=== PATIENT | female | born 1950 | race Caucasian/White ===

== ENCOUNTER → 2017-10-03 07:40 | Outpatient (CLI) | payer MEDICARE, OTHER ==
[2015-10-16 06:17] VITALS: BMI 39.5
[~2017-10-03 07:40] MED LIST: BIMATOPROST2.5 ML EACH EYE; BIOTIN5 MG PO; FOLIC ACID1 MG PO; FORTEO PEN20 MCG SQ; HYDROCODONE-APA1 TAB PO; LUMIGAN EACH EYE; LUNESTA3 MG PO; LUTEIN20 MG PO; NEXIUM40 MG PO; OCUVITE TABLET1 TA1 PO; PAZEO2.5 ML EACH EYE; SYNTHROID50 MCG PO; TOPROL XL50 MG PO; VENOFER100 MG/5 M IV; VIACTIV SOFT C1 EACH PO; ZYLOPRIM100 MG PO; [UNRECOGNIZED DRUG - OTHER] PO
== END | disposition home or self-care (01) ==
LOC: D.CT 07:40
DX: R10.9 Unspecified abdominal pain (principal)

== ENCOUNTER → 2017-10-05 07:21 | Outpatient (CLI) | payer MEDICARE, OTHER ==
[2015-10-16 06:17] VITALS: BMI 39.5
== END | disposition home or self-care (01) ==
LOC: D.RAD 07:21
DX: K21.9 Gastro-esophageal reflux disease without esophagitis (principal)

== ENCOUNTER 2018-01-17 07:42 | Outpatient (CLI) | payer MEDICARE, OTHER ==
[~2018-01-17] VITALS: Ht 154.9 cm; Wt 100.0 kg
--- NOTE | ~2018-01-17 | HP ---
PATIENT: NADINE TARANGO MEDICAL RECORD: [id number] ACCOUNT: [id number] LOCATION:TARA : 48 ADMISSION DATE: 01/17/18 HISTORY AND PHYSICAL EXAMINATION DIAGNOSES: 1. Angina. 2. Coronary artery disease. 3. Abnormal nuclear stress test. 4. Hypertension. 5. Obesity. HISTORY OF PRESENT ILLNESS: Mrs. Tarango presents with increasing episodes of chest pain. Risk stratification with nuclear stress testing showed a large perfusion defect anterolaterally and apically, is now brought for cardiac catheterization. PHYSICAL EXAMINATION: GENERAL APPEARANCE: Well-nourished, well-developed, appears stated age. Level of distress, comfortable. PSYCHIATRIC: Mental status, alert, normal affect. Orientation, oriented to time, place and person. EYES: Lids and conjunctiva, noninjected. No discharge, no pallor. ENT: Lips, teeth, gums, normal dentition. Oropharynx, no cyanosis, no pallor. NECK: Carotid arteries, bilateral normal upstroke, no bruits, no thrills. JUGULAR VEINS: No jugular venous pressure or distention. CERVICAL LYMPH NODES: Nontender, nonenlarged. THYROID: Not enlarged. Nontender. No nodules. LUNGS: Respiratory effort, unlabored. CHEST: Normal curvature. No thoracic deformity. No chest wall tenderness. Percussion, resonant. Auscultation, clear. No wheezes, no rales, no rhonchi. CARDIOVASCULAR: Precordial exam, nondisplaced. No heaves or pericardial thrills. Rate and rhythm, regular. Heart sounds, normal S1, normal S2. No S3, no gallop, no rub. Systolic murmur, not heard. Diastolic murmur, not heard. EXTREMITIES: No cyanosis, no edema. Peripheral pulses, full and equal in all extremities, except as noted. No bruits appreciated. ABDOMEN: Soft, nondistended. Normal aorta. No bruit. Nontender. No masses. Liver, nontender, no hepatomegaly. Spleen, nontender, no splenomegaly. MUSCULOSKELETAL: No joint tenderness. No joint swelling. No erythema. NEUROLOGICAL: Normal gait, normal strength, normal tone. SKIN: Warm and dry. REVIEW OF SYSTEMS: The patient reports easy bruising but reports no swollen glands. The patient reports no fever, no night sweats, no significant weight gain, no significant weight loss. No significant exercise tolerance. The patient reports no dry eyes, no irritation, no vision change. Patient reports no difficulty hearing and no ear pain. Patient reports no frequent nose bleeds or nose and sinus problems. Patient reports on arm pain on exertion. No shortness of breath while lying down. No history of heart murmur. Patient reports no cough, no wheezing or coughing up blood. Patient reports no abdominal pain, no vomiting. Normal appetite. No diarrhea and not vomiting blood. No nausea and no constipation. Patient reports no incontinence. No difficulty urinating. No hematuria. No increased frequency. Patient reports no muscle aches. No weakness, no arthralgias, no back pain. No swelling of the extremities. Patient reports no abnormal mole, no jaundice, no rashes. Reports HISTORY AND PHYSICAL [id number] NADINE TARANGO no loss of consciousness. No weakness and no numbness. No seizures, dizziness, or headaches. The patient reports no depression, no sleep disturbance, feeling safe in a relationship and no alcohol abuse. Patient reports on fatigue. Reports no runny nose or sinus pressure. No itching, no hives, and no frequent sneezing. OVERALL IMPRESSION: Anginal symptomatology with abnormal nuclear stress test, most likely she has hemodynamically significant coronary artery disease. We will proceed with coronary angiography. Further care depends upon the findings of the angiography. TRANSINT:[id number] Voice Confirmation ID: [id number] DOCUMENT ID: [id number] EKTA ZHAO MD at 1230 CC: [id number] DICTATION DATE: 01/17/18 1018 FREEZER PERSON: 01/17/18 1032 DEP CLI 01/17/18 [id number] [place] [address]
--- NOTE | ~2018-01-17 | OP ---
PATIENT NAME: NADINE TARANGO MEDICAL RECORD: [id number] :48 LOCATION:D.CAT ADMISSION DATE: SURGEON: EKTA ZHAO MD DATE OF OPERATION: 01/17/2018 PROCEDURES: 1. Left heart catheterization. 2. Selective coronary angiography. 3. Left ventriculogram. INDICATION: Chest pain compatible with angina. PROCEDURE IN DETAIL: After informed consent was obtained and after a detailed description of risks, benefits as well as alternative therapies, the patient elected to proceed with angiogram and heart catheterization. The right radial area was prepped and draped in normal sterile fashion. Right radial artery was cannulated via modified Seldinger technique with placement of 6-Kazakh sheath. All catheters exchanged through this sheath. FINDINGS: The left ventriculogram was performed in standard 30-degree CERNA view, reveals good cardiac wall motion throughout all segments. Overall ejection fraction estimated 60%. SELECTIVE CORONARY ANGIOGRAPHY: 1. Left main is with no significant angiographic disease. 2. Left anterior descending has moderate irregularities, but no flow-limiting stenosis. 3. The left circumflex has moderate irregularities, but no flow-limiting stenosis. 4. Right coronary artery is small, nondominant with no significant disease. OVERALL IMPRESSION: No significant coronary artery disease is present. Normal left ventricular function. Chest pain is noncardiac in etiology. No further cardiac workup needs to be ascertained. TRANSINT:[id number] Voice Confirmation ID: [id number] DOCUMENT ID: [id number] EKTA ZHAO MD at 1713 CC: [id number] DICTATION DATE: 02/06/18 0940 DEPUTY GENERAL COUNSEL: 02/06/18 1150 DEP CLI 01/17/18 [facility] [address] [place] [address]
--- NOTE | ~2018-01-17 | HEMODYNAMI ---
PATIENT:NADINE TARANGO MEDICAL RECORD: [id number] : 48 LOCATION:DDARBY ADMISSION DATE: 01/17/18 Generatedon:01/17/201810:33 Patient name: NADINE TARANGO Patient #: [id number] SSN: DO B: 1950 Date of study: 01/17/2018 Page: Of Hemodynamic Procedure Report Patient Data Patient Demographics Procedure consent was obtained First Name: NADINE Gender: Female Last Name: SUKHDEEP : 1950 Middle Initial: THOMPSON Age: 67 year(s) Patient #: [id number] Race: Additional ID: [id number] Contact details Address: [address] [place] [address] State: [place] City: [facility] Zip code: [address] Admission Admission Data Admission Date: 01/17/2018 Admission Time: 7:42 Lab Results Lab Result Date: 01/17/2018 Lab Result Time: 0:00 Biochemistry Name Units Result Min Max BUN mg/dl 22 --(----)-* 7 18 Creatinine mg/dl 0.9 --(-*--)-- 0.6 1.3 CBC Name Units Result Min Max Hemoglobin g/dl 14 --(*---)-- 13.5 17.5 Procedure Procedure Types Cath Procedure Diagnostic Procedure [facility] w/Coronaries Procedure Description Procedure Date Procedure Date: 01/17/2018 Procedure Start Time: 10:20 Procedure End Time: 10:33 Procedure Staff Name Function Shivam Peterson MD Performing Physician Art Enriquez RT Monitor Jose Feliciano RN Nurse Lisandra Silverio RT Scrub Procedure Data Cath Procedure Fluoroscopy Diagnostic fluoroscopy Total fluoroscopy Time: 3 time: 3 min min Diagnostic fluoroscopy Total fluoroscopy dose: dose: 348.67 mGy 348.67 mGy Contrast Material Contrast Material Type Amount (ml) Isovue 300 68 Entry Location Entry Primary Successful Side Size Upsize Upsize Entry Closure Hoffman ccessful Closure Location (Fr) 1 (Fr) 2 (Fr) Remarks Device Remarks Radial Right 6 Fr Mechanical artery Short Compression Estimated blood loss: 10 ml Diagnostic catheters Device Type Used For End Catheter Placement DIAGNOSTIC [place] 110cm 5 Procedure Fr catheter ([id number]) DIAGNOSTIC [place] 1 MOD 5Fr Procedure catheter ([id number]) Procedure Medications Medication Administration Route Dosage Oxygen etCO2 Nasal cannula 2 l/min Heparin Flush Bag added to field 2 bags (1000units/500ml NS) 0.9% NaCl I.V. 100 ml/hr Radial Cocktail added to field 1 syringe (Verapomil 2mg/Nitro 400mcg/Heparin 1500units) Fentanyl I.V. 50 mcg Versed I.V. 1 mg Fentanyl I.V. 50 mcg Versed I.V. 1 mg Fentanyl I.V. 50 mcg Versed I.V. 1 mg Radial Cocktail I.A. 1 syringe (Verapomil 2mg/Nitro 400mcg/Heparin 1500units) Fentanyl I.V. 50 mcg Versed I.V. 1 mg Fentanyl I.V. 50 mcg Fentanyl I.V. 50 mcg Hemodynamics Rest HGB: 14 (g/dl) Heart Rate: 69 (bpm) Snapshots Pre Cath Intra NCS Post Cath Vital Signs Time Heart Resp SPO2 etCO2 NIBP (mmHg) Rhythm Pain Sedation Rate (ipm) (%) (mmHg) Status Level (bpm) 9:59:00 67 17 100 32.3 137/71(89) NSR 0 (11) 10(A) , No pain 10:04:32 66 17 100 31.5 132/66(109) NSR 0 (11) 10(A) , No pain 10:09:06 78 16 99 35.3 128/62(91) NSR 0 (11) 10(A) , No pain 10:13:39 64 17 95 31.5 118/64(88) NSR 0 (11) 10(A) , No pain 10:18:07 66 17 96 8.2 120/61(91) NSR 0 (11) 10(A) , No pain 10:22:33 71 16 97 33.8 116/68(92) NSR 0 (11) 9(A) , No pain 10:27:01 76 16 96 30.8 106/59(76) NSR 0 (11) 9(A) , No pain 10:30:59 73 17 95 32.3 108/60(83) NSR 0 (11) 10(A) , No pain Medications Time Medication Route Dose Verified Delivered Reason Notes Effectiveness by by 9:59:55 Oxygen etCO2 2 l/min Shivam Garcia Per Nasal Kristen Feliciano RN physician cannula 10:00:04 Heparin Flush added 2 bags Shivam Garcia used for Bag to Kristen Feliciano RN procedure (1000units/500ml field NS) 10:00:13 0.9% NaCl I.V. 100 Shivamhiral Garcia Per ml/hr Kristen Feliciano RN physician 10:00:21 Radial Cocktail added 1 Shivam Garcia used for (Verapomil to syringe Kristen Feliciano RN procedure 2mg/Nitro field 400mcg/Heparin 1500units) 10:12:39 Fentanyl I.V. 50 mcg Shivam Garcia for sedation Kristen Feliciano RN 10:12:47 Versed I.V. 1 mg Shivam Garcia for sedation Kristen Feliciano RN 10:14:50 Fentanyl I.V. 50 mcg Shivam Garcia for sedation Kristen Feliciano RN 10:14:55 Versed I.V. 1 mg Shivam Garcia for sedation Kristen Feliciano RN 10:20:31 Fentanyl I.V. 50 mcg Shivam Garcia for sedation Kristen Feliciano RN 10:20:34 Versed I.V. 1 mg Shivam Garcia for sedation Kristen Feliciano RN 10:22:44 Radial Cocktail I.A. 1 Shivam Langley for (Verapomil syringe Kristen Peterson MD vasodilation 2mg/Nitro 400mcg/Heparin 1500units) 10:22:50 Fentanyl I.V. 50 mcg Shivam Langley for sedation Kristen Peterson MD 10:22:56 Versed I.V. 1 mg Shivam Langley for sedation Kristen Peterson MD 10:25:06 Fentanyl I.V. 50 mcg Shivam Langley for sedation Kristen Peterson MD 10:27:10 Fentanyl I.V. 50 mcg Shivam Langley for sedation Kristen Peterson MD Procedure Log Time Note 9:24:12 Informed consent obtained and on chart 9:24:15 Diagnostic Cath Status : Elective 9:26:30 Time tracking: Regular hours (M-F 7:00 - 5:00) 9:26:37 Plan of Care:Hemodynamics will remain stable., Cardiac rhythm will remain stable., Comfort level will be maintained., Respiratory function will remain adequate., Patient/ family verbilizes understanding of procedure., Procedure tolerated without complication., Recovers from procedure without complications.. 9:30:06 Jose Feliciano RN sent for patient. Start room use. 9:34:00 Lab Result : BUN 22 mg/dl 9:34:00 Lab Result : Hemoglobin 14 g/dl 9:34:00 Lab Result : Creatinine 0.9 mg/dl 9:34:06 Lab results completed and on chart. 9:42:41 Patient received from Pre/Post Procedure Room to CCL 3 Alert and oriented. Tansferred to table in Supine position. 9:42:44 Warm blankets applied, and roscoe hugger turned on for patient comfort. 9:42:45 Correct patient and procedure confirmed by team. 9:57:17 ECG and BP/O2 sat monitors applied to patient. 9:57:18 Baseline sample Acquired. 9:57:18 Vital chart was started 9:57:24 Rhythm: sinus rhythm 9:57:26 Full Disclosure recording started 9:57:29 Baseline sample Acquired. 9:57:35 H&P Date Dictated: 01/17/2018 New H&P dictated by physician.. 9:57:37 Pre-procedure instructions explained to patient. 9:57:38 Pre-op teaching completed and patient verbalized understanding. 9:57:40 Family in waiting room. 9:57:42 Patient NPO since Midnight. 9:58:08 ALLERGIES NOTED ON CHART 9:58:16 Is the patient allergic to Iodine/contrast media? No. 9:58:19 Is patient on blood thinner?No 9:58:30 Patient diabetic? No. 9:58:36 Patient not . Patient is over age 55. 9:58:37 ----Pre-sedation anethsthesia assessment.---- 9:58:52 Previous problem with sedation/anesthesia? No ? 9:58:55 Snore? Yes 9:58:57 Sleep apnea? Yes 9:58:59 Deviated septum? No 9:59:00 Opens mouth fully? Yes 9:59:01 Sticks out tongue? Yes 9:59:16 Airway obstruction? Yes ASTHMA 9:59:20 Dentures? No ? 9:59:34 Pre procedure: right dorsailis pedis pulse 1+ Palpable, but thready & weak; easily obliterated 9:59:39 Modified Luis Alfredo's test Ulnar < 7 seconds 9:59:44 Patient pain scale 0/10 ?. 9:59:53 IV patent on arrival in left hand with 0.9% NaCl at KVO. 9:59:55 Oxygen 2 l/min etCO2 Nasal cannula was administered by Jose Feliciano RN; Per physician; 10:00:01 Right Radial & Right Groin area was prepped with chlora-prep and draped in sterile fashion 10:00:03 Alarms reviewed by R. N. 10:00:03 Sharps counted by scrub and verified by R.N. 10:00:04 Heparin Flush Bag (1000units/500ml NS) 2 bags added to field was administered by Jose Feliciano RN; used for procedure; 10:00:13 0.9% NaCl 100 ml/hr I.V. was administered by Jose Feliciano RN; Per physician; 10:00:20 Use device set Radial Dx or PCI 10:00:21 Radial Cocktail (Verapomil 2mg/Nitro 400mcg/Heparin 1500units) 1 syringe added to field was administered by Jose Feliciano RN; used for procedure; 10:00:22 ACIST Syringe (39348) opened to sterile field. 10:00:22 Medline Cath Pack ([id number]) opened to sterile field. 10:00:23 Bag Decanter (2001S) opened to sterile field. 10:00:24 DIAGNOSTIC WIRE .035 260cm J wire (857429) opened to sterile field. 10:00:25 ACIST Hand Control (52342) opened to sterile field. 10:00:25 ACIST Manifold (81727) opened to sterile field. 10:00:26 Tegaderm 4 x 4 (1626W) opened to sterile field. 10:00:28 MBrace Wrist Support ([id number]) opened to sterile field. 10:00:44 TR BAND Standard ([id number]) opened to sterile field. 10:00:46 SHEATH 6Fr Prelude Radial ([id number]) opened to sterile field. 10:08:27 Zero performed for pressure channel P1 10:12:18 Physician arrived 10:: --------ALL STOP TIME OUT------ ::19 Final Timeout: patient, procedure, and site verified with staff and physician. All members of the team are in agreement. 10:12:22 Right Radial & Right Groin site verified by team. 10::26 Physical assessment completed. ASA score P 2 - A patient with mild systemic disease as per Shivam Peterson MD. 10:12:30 Sedation plan: IV Moderate Sedation Medication:Versed, Fentanyl 10:12:39 Fentanyl 50 mcg I.V. was administered by Jose Feliciano RN; for sedation; 10:12:47 Versed 1 mg I.V. was administered by Jose Feliciano RN; for sedation; 10:14:50 Fentanyl 50 mcg I.V. was administered by Jose Feliciano RN; for sedation; 10:14:55 Versed 1 mg I.V. was administered by Jose Feliciano RN; for sedation; 10:20:13 Procedure started. 10:20:31 Fentanyl 50 mcg I.V. was administered by Jose Feliciano RN; for sedation; 10:20:31 Local anesthetic to right radial artery with Lidocaine 2% by Shivam Peterson MD.INITIAL ACCESS ONLY 10:20:34 Versed 1 mg I.V. was administered by Jose Feliciano RN; for sedation; 10:22:11 A 6 Fr Short sheath was inserted into the Right Radial artery 10:22:44 Radial Cocktail (Verapomil 2mg/Nitro 400mcg/Heparin 1500units) 1 syringe I.A. was administered by Shivam Peterson MD; for vasodilation; 10:22:50 Fentanyl 50 mcg I.V. was administered by Shivam Peterson MD; for sedation; 10:22:55 A DIAGNOSTIC [place] 110cm 5 Fr catheter ([id number]) was advanced over the wire and used for Procedure. 10:22:56 Versed 1 mg I.V. was administered by Shivam Peterson MD; for sedation; 10:24:01 LV hemodynamics recorded. 10:24:02 LV gram done using CERNA 10:24:08 EF : 60 % 10:24:28 LCA angiography performed. 10:25:06 Fentanyl 50 mcg I.V. was administered by Shivam Peterson MD; for sedation; 10::28 Catheter removed. 10:27:10 Fentanyl 50 mcg I.V. was administered by Shivam Peterson MD; for sedation; 10::29 A DIAGNOSTIC [place] 1 MOD 5Fr catheter ([id number]) was advanced over the wire and used for Procedure. 10:28:36 RCA angiography performed. 10:28:57 Catheter removed. 10:29:51 Sheath removed intact; hemostasis achieved with Mechanical Compression to the Right Radial artery. 10:29:54 Procedure ended.(Physican Out) 10:30:05 Fluoroscopy time 03.00 minutes. 10:30:13 Fluoroscopy dose: 348.67 mGy 10:30:13 Flurop Dose total: 348.67 10:30:21 Contrast amount:Isovue 300 68ml. 10:30:23 Sharps counted by scrub and verified by R.N. 10:31:13 TR band inflated with 12cc of air. 10:31:15 Insertion/operative site no bleeding no hematoma. 10:31:21 Post right radial artery:stable 10:31:31 Post-procedure physical assessment completed. ASA score P 2 - A patient with mild systemic disease as per Shivam Peterson MD. 10:31:41 Post procedure rhythm: sinus rhythm 10:31:49 Estimated blood loss: 10 ml 10:32:30 Post procedure instruction explained to patient.Patient verbalizes understanding. 10:32:31 Patient needs reinforcement of post procedure teaching. 10:32:32 Procedure and supply charges have been captured, reviewed, submitted and are correct. 10:32:57 Vital chart was stopped 10:32:58 See physician's report for complete and final results. 10:33:00 Report given to Pre/Post Procedure Room. 10:33:03 Patient transfered to Pre/Post Procedure Room with Stretcher. 10:33:06 Procedure ended. 10:33:06 Full Disclosure recording stopped 10:33:09 End room use (Document Last) Device Usage Item Name Manufacture Quantity Catalog Number Hospital Part Current M inimal Lot# / Charge Number Stock Stock Serial# Code ACIST Syringe Acist 1 61099 309220 634140 225165 2 0 (40586) [employer] Medline Cath Cardinal 1 [id number] 341532 60469 672824 5 Pack Health ([id number]) Bag Decanter Microtek 1 2001S 641245 21317 077888 5 () Medical Inc. DIAGNOSTIC WIRE St Aj 1 723380 313482 805415 152483 3 0 .035 260cm J wire (595746) ACIST Hand Acist 1 23389 779715 954662 896034 5 Control (32876) Medical Systems Inc ACIST Manifold Acist 1 32154 961809 325610 902251 5 (84531) Medical Systems Inc Tegaderm 4 x 4 3M 1 1626W 383348 804647 663910 5 (1626W) MBrace Wrist Advanced 1 140-0250-00 366981 54688 477375 5 Support Vascular ([id number]) Dynamics TR BAND Terumo 1 [id number] 047688 282451 748071 4 0 Standard ([id number]) SHEATH 6Fr Merit 1 [id number] 860647 510258 531397 5 Prelude Radial Medical ([id number]) DIAGNOSTIC Terumo 1 40-1293 602054 764617 962088 5 [place] 110cm 5 Fr catheter (362404) DIAGNOSTIC AR 1 Cardinal 1 [id number] 255865 272475 958880 1 5 MOD 5Fr Health catheter ([id number]) Signature Audit Neihart Stage Time Signature Unsigned Intra-Procedure 01/17/2018 Art Enriquez 10:33:41 AM RT(R) (CV) Signatures Monitor : Art Enriquez RT Signature : Date : Time : [id number] [facility] [place] [address]
[2018-01-17] MEDS ORDERED: FUROSEMIDE20 MG PO (08:08)
[2018-01-17] MEDS ORDERED: VITAMIN D31000 UNI2 PO (08:09)
[2018-01-17] MEDS ORDERED: LUMIGAN 0.01%2.5 ML EACH EYE (08:10)
[2018-01-17 08:19] VITALS: BP 105/64; Ht 154.9 cm; Wt 100.0 kg
[2018-01-17 08:26] LABS: BASOPHILS 0.3 % (0-2); EOSINOPHILS 2.6 % (0-7); HEMATOCRIT 41.3 % (36.0-48.0); IMMATURE GRANULOCYTES 0.3 % (0-5); LYMPHOCYTES 15.4 % (15-50); MCH 30.4 pg (26.0-34.0); MCHC 33.9 g/dL (31.0-37.0); MCV 89.6 fL (80.0-100.0); MEAN PLATELET VOLUME 10.1 fL (7.4-10.4); MONOCYTES 4.5 % (2-11); NEUTROPHILS 76.9 % (40-80); PLATELET COUNT 210 10x3/uL (130-400); RBC 4.61 10x6/uL (4.00-5.40); RDW 13.2 % (11.5-14.5); WBC 9.1 10x3/uL (4.8-10.8)
[2018-01-17 08:48] LABS: ANION GAP 9.8 mmol/L (8-16); CALCIUM 9.1 mg/dL (8.5-10.1); CARBON DIOXIDE 29.3 mmol/L (21.0-32.0); CREATININE - SERUM 0.9 mg/dL (0.6-1.3); POTASSIUM - SERUM 4.1 mmol/L (3.5-5.1)
== END 2018-01-17 12:30 ==
LOC: D.CATH 07:42
PROVIDERS: Internal Medicine Interventional Cardiology
DX: R07.9 Chest pain, unspecified (principal); I25.110 Atherosclerotic heart disease of native coronary artery with unstable angina pectoris; I10 Essential (primary) hypertension